=== PATIENT | male | born 1975 | race Caucasian/White ===

== ENCOUNTER 2024-05-21 08:10 | Emergency (ER) | payer MEDICAID ==
[~2024-05-21] VITALS: Ht 180.3 cm; Wt 77.1 kg
[2024-05-21 13:04] VITALS: BP 143/89; TEMP 98.9; O2SAT 99
== END 2024-05-21 13:05 | disposition home or self-care (01) ==
LOC: ER 08:15
DX: F10.129 Alcohol abuse with intoxication, unspecified (principal); F17.200 Nicotine dependence, unspecified, uncomplicated; Z59.00 Homelessness unspecified; Y90.9 Presence of alcohol in blood, level not specified
CPT/HCPCS: 82962-TC